=== PATIENT | female | born 1965 | race Caucasian/White ===

== ENCOUNTER 2022-08-13 06:13 | Observation (INO) ==
--- NOTE | 2022-07-23 12:12 | PAT Medication Instructions ---
Medication Instructions Date of Service July 23, 2022 Home Medications ascorbic acid (vitamin C) 1,000 mg tablet (Vitamin C) 1 g PO DAILY PRN DO NOT take the morning of surgery ascorbic acid (vitamin C) 1,000 mg tablet (Vitamin C) 1 g PO DAILY PRN Other Notes NOTHING TO EAT OR DRINK AFTER MIDNIGHT. If you have any questions please call us at [phone] or [phone] or [phone] or [phone]
--- NOTE | 2022-07-30 12:00 | Anesthesiology Consultation ---
Date of Service July 30, 2022 Assessment & Plan (1) Encounter for pre-operative examination: - Check test AM DOS - Check BSG AM DOS (glucose elevated at 154 on preop labs. No known hx of diabetes. Will recheck BSG level AM DOS) - COVID screening: Per assessment on 07/30: No known COVID-19 positive contacts or current COVID-19 related symptoms. Travel screen- [place] (returned 07/21, airplane). Patient vaccinated. At surgeon discretion if preop Covid testing being done. Chart Review Chart Review: Acceptable Risk for Surgery and Patient seen in Pre Admission Testing Teaching & Discussion Pre-Anesthesia Teaching/Discussion Notes: Instructed NPO after midnight before s urgery,except medications with 15 cc of water. Medication instructions provided according to the PAT guidelines. History Surgery Operation Date: 08/13/22 07:45 Proposed Procedures p C5-C7 Anterior Cervical Discectomy and Fusion, Spinal Cord Monitoring - Shiva Ortiz, Height/Weight Height: 5 ft 8 in Weight: 59.5 kg Allergies Allergy/AdvReac Type Severity Reaction Status Date / Time No Known Allergies Allergy Verified 07/22/22 16:31 Medications Home Medications Medication Instructions Recorded Confirmed Last Taken ascorbic acid (vitamin C) 1,000 mg 1 g PO DAILY PRN sickness 07/22/22 07/22/22 Unknown tablet (Vitamin C) Past Medical History Medical History Pinched cervical nerve root Sleep apnea "Has not needed device" since weight loss, no formal retesting TMJ dysfunction Hx right jaw subluxation Exercise / Class Metabolic Activity II 4-5 Yardwork/Stairs/Walk up hill Past Family History Family History Other No family history of adverse response to anesthesia Past Surgical History Surgical History History of colonoscopy History of esophagogastroduodenoscopy (EGD) History of wisdom tooth extraction Past Anesthesia History No Hx of Anesthesia Complications and No Family Hx of Anesthesia Complications History of PONV No Hx of PONV and Hx of Motion Sickness (+ boats/cars) Social History Smoking Status: Never smoker Do You Dip or Chew Tobacco: No Hx Alcohol Use: No Hx Substance Use: No substance use type: does not use Review of Systems Occasional palpitations. Patient denies chest pain, shortness of breath, dyspnea on exertion, fever, chills, cough, wheezing. Physical Exam Vital Signs VITALS BP 117/82 P 80 TEMP WNL SP02 100%RA RESP 18 PHYSICAL Full cervical extension range of motion. Full TMJ range of motion. TMD 3 finger breaths Mallampati Score 1 Dentition: missing molars, crown on #19 Lungs: clear throughout to auscultation Cardiac: regular rate and rhythm, no murmurs noted Spine: normal Carotid arteries: negative bruit Extremities: no LE edema Lab Results Anesthesia Preop Results Results Anesthesia Widget: WBC 5.73 K/ul (4.8-10.8) 07/30/22 Hgb 12.8 g/dl (12.0-16.0) 07/30/22 Hct 38.2 % (37.0-47.0) 07/30/22 Plt 295 K/uL (130-400) 07/30/22 Na 140 mmol/L (136-145) 07/30/22 K 3.7 mmol/L (3.5-5.1) 07/30/22 Cl 104 mmol/L (98-107) 07/30/22 CO2 29 mmol/L (21-32) 07/30/22 BUN 13 mg/dl (6-23) 07/30/22 Creat 0.69 mg/dl (0.6-1.2) 07/30/22 Glucose Level 154 mg/dl (70-99(Fasting)) H 07/30/22 PT 11.4 Seconds (9.0-12.0) 07/30/22 PTT 31.3 Seconds (21.0-31.0) H 07/30/22 INR 1.0 (0.9-1.1) 07/30/22 Urine Color Yellow 07/30/22 Urine Appearance Clear (Clear) 07/30/22 Urine pH 6.5 (4.5-7.5) 07/30/22 Urine Specific [place] 1.014 (1.000-1.030) 07/30/22 Urine Protein Negative (Negative) 07/30/22 Urine Glucose (UA) Negative (Negative) 07/30/22 Urine Ketones Negative (Negative) 07/30/22 Urine Blood Negative (Negative) 07/30/22 Urine Nitrite Negative (Negative) 07/30/22 Urine Bilirubin Negative (Negative) 07/30/22 Urine Urobilinogen Negative (Negative) 07/30/22 Urine Leukocyte Esterase Negative (Negative) 07/30/22 Blood Type O Negative 07/30/22 Antibody Screen NEGATIVE 07/30/22 Testing Electrocardiogram Date: 07/30/22 NSR at 70bpm. Chest X-Ray Date: 07/30/22 FINDINGS: Lung volumes are normal. Lungs are clear. There is no pneumothorax or pleural effusion. Cardiac size is normal. Mediastinal contours are normal. There is no evidence for pulmonary edema. IMPRESSION: No acute cardiopulmonary findings. Echocardiogram Date: 08/28/18 EF 60%. No significant valvular disease. Insufficient tricuspid regurgitation jet to estimate pulmonary pressure. Stress Test Date: 09/08/18 Type: exercise Stress EKG negative for myocardial ischemia at 96% MPHR. Moderate level of e xercise achieved. 10.1 METS. COVID-19 Risk Screen Screening Information COVID-19 Screen Date: 07/30/22 Exposure 21 Days Family/Household +COVID Last 21 Days: No Exposure 10 Days Any COVID Exposure Last 10 Days: No Symptoms Last 10 Days Experienced COVID Sx Last 10 Days: No + COVID 0-90 Days COVID + in Last 0-90 Days: No
[~2022-08-13 06:13] MED LIST: ACETAMINOPHEN 500 MG TAB PO SCH; CeleBREX 200 MG CAP PO SCH; GABAPENTIN 600 MG DOSE PO SCH; LR 15ML/HR IV SCH; ceFAZolin 2000MG 2,000 MG/15 ML SYR IV SCH
[2022-08-13] MEDS ORDERED: PROPOFOL IV EMULSION 10 MG/ML 20 ML VIAL IV ONE (07:11)
[2022-08-13] MEDS ORDERED: ONDANSETRON INJ 2 MG/ML 2 ML VIAL ONE (07:11)
[2022-08-13] MEDS ORDERED: LIDOCAINE 2% 2 ML VIAL/AMP(20MG/ML) INFIL ONE (07:11)
[2022-08-13] MEDS ORDERED: ROCURONIUM BROMIDE 10 MG/ML 5 ML VIAL IV ONE (07:11)
[2022-08-13] MEDS ORDERED: DEXAMETHASONE SOD INJ 4 MG/ML VIAL ONE (07:11)
[2022-08-13] MEDS ORDERED: MIDAZOLAM HCL 1 MG/ML 2ML VIAL ONE (07:12)
[2022-08-13] MEDS ORDERED: SUGAMMADEX SODIUM 200 MG/2 ML VIAL IV ONE (07:12)
[2022-08-13] MEDS ORDERED: fentaNYL citrate PF 100 MCG/2 ML VIAL ONE (07:12)
--- NOTE | 2022-08-13 07:34 | History & Physical Bridge Note ---
Date of Service August 13, 2022 History & Physical Bridge Note I have examined the patient, reviewed the History & Physical and in the interval since the performance of the History & Physical I have noted the following changes of clinical significance: no changes noted
[2022-08-13] MEDS ORDERED: ceFAZolin 330 MG/ML 1 GM VIAL ONE (07:39)
--- NOTE | 2022-08-13 07:39 | History & Physical Report ---
Date of Service August 13, 2022 Assessment & Plan (1) Cervical stenosis of spinal canal: Plan: C5-C7 anterior cervical discectomy and fusion History of Present Illness Chief Complaint: Neck and arm pain Primary Care Provider: Christina Prakahs MD This is a 57-year-old female presents with chronic persistent neck and arm pain after failing course of nonoperative care she is here for surgical invention. Allergies Allergy/AdvReac Type Severity Reaction Status Date / Time No Known Allergies Allergy Verified 08/13/22 06:57 Home Medications Medication Instructions Recorded Confirmed Type ascorbic acid (vitamin C) 1,000 mg 1 g PO DAILY PRN sickness 07/22/22 08/13/22 History tablet (Vitamin C) Past Med/Surg History Medical History Pinched cervical nerve root Sleep apnea "Has not needed device" since weight loss, no formal retesting TMJ dysfunction Hx right jaw subluxation Surgical History History of colonoscopy History of esophagogastroduodenoscopy (EGD) History of wisdom tooth extraction Family History Other No family history of adverse response to anesthesia Social History Smoking Status: Never smoker Second Hand Exposure: No; Do You Dip or Chew Tobacco: No; Tobacco Cessation Education Requested by Patient: No Hx Alcohol Use: No Hx Substance Use: No Preferred Language: Romanian Communication Ability: Effective Regulatory Assistant Required: No Beliefs That Will Affect Care: None Current Living Situation: Spouse Other Information That Helps Us Care for You: No Feels Safe at Home: Yes Safety Concerns: Feels Safe At This Time Assistive Devices: Glasses Assistive Devices Comment: reading glasses Physical Exam Physical Exam: Patient is alert and oriented Heart regular rhythm Lungs clear Results & Data Results & Data Vital Signs (Past 12 Hours) Vital Signs Temp Pulse Resp BP Pulse Ox O2 Del Method 08/13/22 06:58 36.6 C 71 18 107/76 18 L Room Air
[2022-08-13] MEDS ORDERED: ePHEDrine sulfate 50 MG/ML AMP IV PRN (08:11)
[2022-08-13] MEDS ORDERED: HYDROmorphone INJ 2 MG/ML SYR/VIAL IV PRN (08:11)
[2022-08-13] MEDS ORDERED: ONDANSETRON INJ 2 MG/ML 2 ML VIAL IV PRN ×2 (08:11→11:08)
[2022-08-13] MEDS ORDERED: ATROPINE SULFATE 0.1 MG/ML 10ML SYR IV PRN (08:11)
[2022-08-13] MEDS ORDERED: PROMETHAZINE HCL 12.5 MG in SODIUM CHLORIDE 0.9% 50 ML IV PRN ×2 (08:11→11:08)
[2022-08-13] MEDS ORDERED: FLOSEAL HEMOSTATIC MATRIX 10ML TOP ONE (08:48)
--- NOTE | 2022-08-13 09:17 | Operative Report ---
Post Operative Report Pre & Post Diagnosis Operation Date: 08/13/22 07:45 Pre-Op Diagnosis: Cervical spinal stenosis with radiculopathy Post-Op Diagnosis: Same I identified the patient and participated in the time-out.: Yes Procedure Operation Date: 08/13/22 07:45 Actual Procedures 1. Anterior cervical discectomy and bilateral foraminotomies C5-C6 C6-C7. #2 anterior cervical arthrodesis C5-C6 C6-C7. #3 placement of Spira 7 mm cage C5- C6 C6-C7 both filled with I factor. #4 application of K2 M plate and screws from C5 to C7. Surgeon Shiva Ortiz, Structures Engineer Jim Stout Estimated Blood Loss 15 Findings Consistent with Post-Op Diagnosis Specimens None Indications This is a 57-year-old female who presents with chronic persistent cervical radiculopathy after failing course of nonoperative care is here for surgical invention. Description of Procedure Patient was met with identified informed consent obtained. Patient was then taken to the operative suite underwent ablation placed in spine position on the Leo table head Pitts mcdaniel. All bony promises well-padded eyes inspected to ensure no external pressure placed upon. This point the anterior cervical spine was prepped and draped in sterile fashion. The assistance of fluoroscopy identified the C6 vertebral body and a transverse incision was placed along the right anterior aspect of the cervical spine overlying this region. Blunt dissection with assistance of bipolar electrocautery was then performed down to and exposing the anterior cervical spine from C5-C7. Self- retaining tractors placed. Then performed a complete discectomy of C5-C6 out to the uncovertebral's bilaterally. Gattman distracting pins were used to assist in visualization. Removed all posterior annular fibers and longitudinal ligament and performed bilateral foraminotomies for complete decompression. The endpl ates were then burred to subcortical bleeding bone and a 7 mm Spira cage filled with I factor tapped in position. Then proceeded to C6-C7. Again complete discectomy performed out to the uncovertebral joints bilaterally. Gattman distracting pins again utilized. Removed all posterior annular fibers longitudinal ligament bilateral foraminotomies performed endplates burred to subcortical bleeding bone and 7 mm Spira cage with I factor tapped in position. Distracting apparatus was removed. All anterior osteophytes burred to smooth cortical surface and a K2 M plate and screws applied with the assistance of fluoroscopy. The incision was then copiously irrigated explored to ensure no damage to surrounding structures or remaining bleeding. 10 round MISTY drain inserted. The incision was then closed with 2 Vicryl in the fascia and 4 Monocryl for final skin closure. Steri-Strips sterile dressing placed. Patient waken taken to PACU in stable condition. Please note spinal cord monitoring was utilized at the procedure no changes noted. Lastly Jim Parson was present at the entire surgeon while the patient positioning complex portion of the surgery and final skin closure. I attest to the content of the Intraoperative Record and any orders documented therein. Any exceptions are noted below.
[2022-08-13] MEDS: fentaNYL citrate PF 100 MCG/2 ML VIAL IV PRN ×2 (09:36→09:41)
--- NOTE | 2022-08-13 10:01 | Fluoroscopy Report ---
FL cervical 2-3V CLINICAL HISTORY: ACDF C5-C7 COMPARISON STUDY: None. FLUOROSCOPY TIME: 10 seconds FLUOROSCOPY IMAGES: 2 Ka,r: 0.5 mGy FINDINGS: Anterior cervical discectomy and fusion from C5 through C7. The hardware appears intact. Na sogastric and endotracheal tubes are partially visualized. IMPRESSION: Fluoroscopic assistance as above. ACT 112: Negative or not required by law. Electronically signed by: Que Oliveira M.D. 08/13/2022 10:00 AM
--- NOTE | 2022-08-13 10:24 | Anesthesiology Progress Note ---
Date of Service August 13, 2022 Anesthesia Post Procedure Vital Signs Vital Signs: Temp Pulse Pulse Resp BP Pulse Ox O2 Del Method 08/13/22 09:50 69 13 113/74 100 Oxymask 08/13/22 09:40 75 12 124/86 100 Oxymask 08/13/22 09:31 36.3 C L 80 20 124/88 100 Oxymask 08/13/22 06:58 36.6 C 71 18 107/76 18 L Room Air O2 Flow Rate 08/13/22 09:50 4 08/13/22 09:40 6 08/13/22 09:31 6 08/13/22 06:58 Pain Intensity Neck: Pain Intensity: 2 Transfer of Care Handoff Completed per policy Notes Mental Status: alert / awake / arousable and participated in evaluation Patient Amnestic to Procedure: Yes Nausea / Vomiting: adequately controlled Pain: adequately controlled Airway Patency, RR, SpO2: stable & adequate BP & HR: stable & adequate Hydration State: stable & adequate Anesthetic Complications: no major complications apparent
[2022-08-13] MEDS ORDERED: DO NOT ADMINISTER FLU VACCINE PRN (11:08)
[2022-08-13] MEDS ORDERED: LORazepam 2 MG/1 ML VIAL IV PRN (11:08)
[2022-08-13] MEDS ORDERED: oxyCODONE HCL IR 5 MG TAB (IMMEDIATE RELEASE) PO PRN (11:08)
[2022-08-13] MEDS ORDERED: ACETAMINOPHEN 500 MG TAB PO PRN (11:08)
[2022-08-13] MEDS ORDERED: hydrOXYzine HCl 25 MG TAB PO PRN (11:08)
[2022-08-13] MEDS ORDERED: dexAMETHasone 8 MG in SYRINGE 0 ML IV PRN (11:08)
[2022-08-13] MEDS ORDERED: traMADol HCL 50 MG TABLET PO PRN (11:08)
[2022-08-13] MEDS ORDERED: ACETAMINOPHEN 1,000 MG/100 ML VIAL IV PRN (11:08)
[2022-08-13] MEDS ORDERED: HYDROmorphone INJ 0.5 MG/0.5 ML SYR IV PRN (11:08)
[2022-08-13] MEDS ORDERED: ONDANSETRON 4 MG OD TAB PO PRN (11:08)
[2022-08-13] MEDS ORDERED: HYDROmorphone INJ 1 MG/ML SYRINGE IV PRN (11:08)
[2022-08-13] MEDS ORDERED: RACEPINEPHRINE 2.25% NEBU SOLN 0.5 ML VIAL INH PRN (11:08)
[2022-08-13] MEDS ORDERED: bisacodyL 10 MG SUPP PR PRN (11:08)
[2022-08-13] MEDS ORDERED: diphenhydrAMINE Capsule 25 MG CAP PO PRN (11:08)
[2022-08-13] MEDS ORDERED: NALOXONE HCL 0.4 MG/1 ML VIAL/CARP IV PRN (11:08)
[2022-08-13] MEDS ORDERED: FAMOTIDINE 20 MG TAB PO PRN (11:08)
[2022-08-13] MEDS ORDERED: SOD PHOSPHATE/SOD BIPHOSPHATE ENEMA 132 ML BTL PR PRN (11:08)
[2022-08-13] MEDS ORDERED: MAGNESIUM HYDROXIDE SUSP 30 ML UDC PO PRN (11:08)
[2022-08-13] MEDS ORDERED: METOCLOPRAMIDE HCL INJ 5 MG/ML 2 ML VIAL IV PRN (11:08)
[2022-08-13] MEDS ORDERED: DO NOT ADMINISTER PNEUMOCOCCAL VACCINE PRN (11:08)
[2022-08-13] MEDS ORDERED: ALUMINUM/MAGNESIUM SUSP 30 ML UDC PO PRN (11:08)
[2022-08-13] MEDS ORDERED: LORazepam 0.5 MG TAB PO PRN (11:08)
[2022-08-13] MEDS ORDERED: ASCORBIC ACID 500 MG TAB PO PRN (11:12)
[2022-08-13] MEDS: LACTATED RINGER'S 1,000 ML IV SCH ×2 (11:30→20:21)
[2022-08-13] MEDS: ceFAZolin 1000MG 1,000 MG/7.5 ML SYR IV SCH (16:07)
[2022-08-13] MEDS ORDERED: DOCUSATE SODIUM/SENNA 50/8.6MG TAB PO SCH (21:00)
[2022-08-14] MEDS: ceFAZolin 1000MG 1,000 MG/7.5 ML SYR IV SCH (00:18)
[2022-08-14] MEDS ORDERED: POLYETHYLENE (MIRALAX) 17 GM PACK PO SCH (06:00)
[2022-08-14 06:18] LABS: BUN Creatinine Ratio 18.6 (10-20); Basophils # (auto) 0.03 K/uL (0-0.2); Basophils % (auto) 0.3 %; Calcium 8.6 mg/dl (8.6-10.3); Creatinine Clr Calc Pharmacy 102.7 ml/min; Eosinophils # (auto) 0.06 K/uL (0-0.50); Eosinophils % (auto) 0.7 %; Est GFR (African American) 119.6 ml/min; Est GFR (Non-African American) 103.2 ml/min; Immature Granulocytes # (auto) 0.03 K/uL (0.01-0.20); Immature Granulocytes % (auto) 0.3 %; Lymphocytes # (auto) 1.96 K/uL (1.2-3.4); Lymphocytes % (auto) 21.6 %; Mean Corpuscular Hemoglobin 30.5 pg (25.0-34.0); Mean Corpuscular Hgb Conc 34.3 g/dL (32.0-36.0); Mean Corpuscular Volume 88.8 fL (80.0-100.0); Mean Platelet Volume 10.4 fL (9.4-12.4); Monocytes % (auto) 6.6 %; Neutrophils % (auto) 70.5 %; Platelet Count 217 K/uL (130-400); Potassium 3.7 mmol/L (3.5-5.1); RDW Coefficient of Variation 12.2 % (11.5-14.5); RDW Standard Deviation 39.8 fL (36.4-46.3); Red Blood Count 3.94 M/uL (4.20-5.40); White Blood Count 9.08 K/ul (4.8-10.8)
[2022-08-14] MEDS ORDERED: dexAMETHasone 6 MG in SYRINGE 0 ML IV SCH (09:00)
--- NOTE | 2022-08-14 09:45 | Discharge Summary ---
Date of Service August 14, 2022 Admission HPI Per Admitting Provider This is a 57-year-old female presents with chronic persistent neck and arm pain after failing course of nonoperative care she is here for surgical invention. Principal Diagnosis Cervical radiculopathy Discharge Data Allergies Allergy/AdvReac Type Severity Reaction Status Date / Time No Known Allergies Allergy Verified 08/13/22 06:57 Procedures Performed Operation Date: 08/13/22 07:45 Actual Procedures p C5-C7 Anterior Cervical Discectomy and Fusion, Spinal Cord Monitoring(Not Applicable) - Shiva Ortiz DO Ordered Studies 08/13/22 07:45 [place] cervical 2-3V Routine Hospital Course (1) Cervical stenosis of spinal canal: Patient underwent anterior cervical discectomy and fusion tolerated this well was taken to orthopedic for postop lipid postop day 1 she was swallowing well. No hoarseness. Excellent strength testing. MISTY drain decreasing probably. Simply discharged home. Discharge orders instructions found in chart for further review. Total Time Total Time Spent Total Time Spent (In Minutes): 20 minutes Discharge Plan Discharge Items Patient Disposition: Home - Self-Care Reason For Visit: Spinal Stenosis, Cervical Region Discharge Diagnosis: Cervical spinal stenosis with radiculopathy Activity: As commented below Non-emergency contact: Primary Care Provider Call non-emergency contact if: you have any medication questions Follow-up/Referrals: Christina Prakash MD [Primary Care Provider] - Diet: Regular Addtl Attending Provider Instructions: ACTIVITY RECOMMENDATIONS: SELF CARE INSTRUCTIONS AFTER CERVICAL FUSIONS 1. No smoking. Smoking drastically decreases the chance of a solid fusion. 2. No bending, lifting more than 5 pounds, or twisting (roll like a log when turning in bed). 3. You may shower 3 days after surgery. Thoroughly dry wound. Do not soak in the tub. 4. Cervical collar: Must be worn at all times including sleeping. You may remove the brace only to bath, eat and if you are sitting in a recliner. 5. Please walk as much as you can for exercise. Gradually increase the distance that you walk as your endurance increases. SPECIAL CARE INSTRUCTIONS: VERY IMPORTANT TO READ AND REVIEW A. Do not take any anti-inflammatory medications (i.e. Indocin, Advil, Aspirin, Naprosyn, Aleve, Motrin, etc.) as these may inhibit the chance of a solid fusion. Tylenol is okay to take. B. Your surgical incision has been closed with a cosmetic suture under the skin that will dissolve in about 6 weeks. In 14 days, you can use a pair of clean scissors and cut the suture that is left outside of the skin at the ends of your incision. C. Complications are uncommon, but please contact us if you have any signs or symptoms of: 1. wound infection (fever higher than 102.5 degrees F, redness, separation of wound, drainage, or increasing pain from the incision) 2. blood clots in legs (pain, swelling, redness and warmth in legs) 3. urinary tract infection (fever higher than 102.5 degrees, burning upon urination or increased frequency of urination) 4. nerve problems (inability to walk on your toes or heels, numbness, loss of bowel or bladder control) 5. any other symptoms that concern you. D. Please call the office at if you have any concerns or questions about your operation or recovery. MANAGING PAIN AFTER SPINAL SURGERY 1. Narcotic medication is intended for short-term use and will be provided for surgical pain. Surgical pain usually lasts for a period of 4-6 weeks. Narcotic medication includes Percocet, Vicodin, Darvocet, Tylenol #3 or Lortab. 2. Longer-term pain is more appropriately treated with non-narcotic medication such as Tylenol ES. 3. Muscle spasm is not appropriately treated with narcotics. Muscle relaxers such as Soma, Flexeril or Skelaxin can be used along with Tylenol ES. 4. Remember that we all live with some "aches and pains". This is not unusual or uncommon after an injury or as we get older. 5. We will provide appropriate medication within the normal guidelines of their prescribed use. We will also be very cautious and aware of potential abuse and extended duration of patients' medication needs. 6. Please allow 2-3 days to process refills. Prescriptions will not be mailed but must be picked up at the office. FOLLOW UP VISIT: Keep your scheduled follow-up appointment. Any questions, please call the office at . Pending Studies at Discharge: No Stand-Alone Forms: [facility] [place] [facility], Smoking Cessation Medications and DC Order Prescriptions: New tramadol 50 mg tablet 50 mg PO Q6H PRN (Reason: pain, moderate) Qty: 30 0RF oxycodone 5 mg tablet 5 mg PO Q6H PRN (Reason: pain) Qty: 30 0RF Continued ascorbic acid (vitamin C) [Vitamin C] 1,000 mg Tablet 1 g PO DAILY PRN (Reason: sickness) Discharge Orders: Discharge Order (Routine); Ordered 08/14/22 Ordered By: Shiva Ortiz Admission Data Admit Date/Time: 08/13/22 09:20 Attending Provider: Shiva Ortiz Admit Provider: Shiva Ortiz Primary Care Provider: Christina Prakash
== END 2022-08-14 10:50 | disposition home or self-care (01) ==
LOC: 3E 06:13 → ASU 06:13